=== PATIENT | male | born 1995 | race Caucasian/White ===

== ENCOUNTER 2019-10-12 00:20 | Emergency (ER) | payer BC ==
[2019-10-12 00:29] VITALS: BP 122/66; PULSE 66; RESP 18; TEMP 97.8
--- NOTE | 2019-10-12 01:10 | XR ---
EXAMINATION TYPE: XR hand complete LT DATE OF EXAM: 10/12/2019 COMPARISON: NONE HISTORY: Second metacarpal pain TECHNIQUE: 3 views FINDINGS: I see no fracture nor dislocation. Joint spaces are normal. Metacarpals appear intact. Ther e nor erosions. There is no subluxation. IMPRESSION: Normal left hand exam. No fracture.
--- NOTE | 2019-10-12 01:16 | ED ---
Upper Extremity HPI - General Chief Complaint: Extremity Injury, Upper Stated Complaint: L Hand Pain Time Seen by Provider: 10/12/19 00:34 Source: patient, RN notes reviewed, old records reviewed Mode of arrival: ambulatory Limitations: physical limitation - History of Present Illness Initial Comments: 24 male presents today for concern for L hand pain for weeks. Patient reports that he has alump over 2nd metacarpal and pain with range of motion. He works with is hands at a factory. Patient reports he is R handed. - Related Data Allergies Allergy/AdvReac Type Severity Reaction Status Date / Time No Known Allergies Allergy Verified 10/12/19 00:29 Review of Systems ROS Statement: Those systems with pertinent positive or pertinent negative responses have been documented in the HPI. ROS Other: All systems not noted in ROS Statement are negative. Past Medical History Past Medical History: No Reported History History of Any Multi-Drug Resistant Organisms: None Reported Past Surgical History: No Surgical Hx Reported Past Psychological History: ADD/ADHD Smoking Status: Never smoker Past Alcohol Use History: Occasional Past Drug Use History: None Reported General Exam - General Exam Comments Initial Comments: 24 year old male, no distress. Limitations: physical limitation General appearance: alert, in no apparent distress Head exam: Present: atraumatic, normocephalic, normal inspection Eye exam: Present: normal appearance, PERRL, EOMI. Absent: scleral icterus, conjunctival injection, periorbital swelling ENT exam: Present: normal exam, mucous membranes moist Neck exam: Present: normal inspection. Absent: tenderness, meningismus, lymphadenopathy Respiratory exam: Present: normal lung sounds bilaterally. Absent: respiratory distress, wheezes, rales, rhonchi, stridor Cardiovascular Exam: Present: regular rate, normal rhythm, normal heart sounds. Absent: systolic murmur, diastolic murmur, rubs, gallop, clicks GI/Abdominal exam: Present: soft, normal bowel sounds. Absent: distended, tenderness, guarding, rebound, rigid Extremities exam: Present: normal inspection, full ROM, normal capillary refill. Absent: tenderness, pedal edema, joint swelling, calf tenderness Right Upper Arm exam: Present: normal inspection, full ROM Elbow exam: Present: normal inspection, full ROM Forearm Wrist exam: Present: normal inspection, full ROM Hand Wrist exam: Present: full ROM, tenderness (over 2nd digit. ). Absent: normal inspection Vascular: Present: normal capillary refill Back exam: Present: normal inspection Neurological exam: Present: alert, oriented X3, CN II-XII intact Psychiatric exam: Present: normal affect, normal mood Skin exam: Present: warm, dry, intact, normal color. Absent: rash Course Vital Signs 10/12/19 00:24 Temperature 97.8 F Pulse Rate 66 Respiratory 18 Rate Blood Pressure 122/66 O2 Sat by Pulse 99 Oximetry Medical Decision Making - Medical Decision Making 24 year old male with CC of left hand pain for months. PAtient has full ROM, small cyst like lump on 2nd metacarpal. Patient hand xray is normal. Patient advised to follow up with ortho and PCP and take antiinflammatory medication. - Radiology Data Radiology results: report reviewed Normal hand xray, no fracture or dislocation. Disposition Clinical Impression: Sprain of left hand, Cyst in hand Disposition: HOME SELF-CARE Condition: Good Instructions (If sedation given, give patient instructions): Hand Sprain (ED) Additional Instructions: Take antiinflammatories medication and advised to follow up with orthopedics. Patient can use MAGNO wrap and ice the hand. Return to ED if any alarming signs or symptoms occur. Is patient prescribed a controlled substance at d/c from ED?: No Referrals: Luis Fernando Prabhakar MD [Primary Care Provider] - 1-2 days Rodrigo Sampson DO [Medical Doctor] - 1-2 days Time of Disposition: 01:13
== END 2019-10-12 01:39 | disposition home or self-care (01) ==
LOC: EC 00:20
DX: S63.92XA Sprain of unspecified part of left wrist and hand, initial encounter (principal); L72.9 Follicular cyst of the skin and subcutaneous tissue, unspecified; X58.XXXA Exposure to other specified factors, initial encounter
CPT/HCPCS: 99284

== ENCOUNTER 2019-10-25 19:52 | Emergency (ER) | payer BC ==
[2019-10-25] MEDS ORDERED: guaiFENesin-Coden 100-10MG/5ML 10 ML CUP PO STA (20:17)
[2019-10-25] MEDS ORDERED: KETOROLAC 30 MG/ML 1 ML VIAL IM STA (20:17)
[2019-10-25] MEDS ORDERED: DEXAMETHASONE SOD PHOSPHATE 10 MG/ML 1 ML VIAL IM STA (20:17)
[2019-10-25] MEDS ORDERED: ACETAMINOPHEN TAB 500 MG TAB PO STA (20:17)
--- NOTE | 2019-10-25 20:34 | XR ---
EXAMINATION TYPE: XR chest 2V DATE OF EXAM: 10/25/2019 COMPARISON: NONE HISTORY: Cough and congestion TECHNIQUE: FINDINGS: Heart and mediastinum are normal. Lungs are clear of infiltrate. There is no pleural effusi on. There are no hilar masses. Bony thorax is intact. IMPRESSION: No active cardiopulmonary disease. Normal heart.
--- NOTE | 2019-10-25 20:44 | ED ---
General Adult HPI - General Chief complaint: Fever Stated complaint: abd pain/fatigue Time Seen by Provider: 10/25/19 20:06 Source: patient Mode of arrival: ambulatory Limitations: no limitations - History of Present Illness Initial comments: 24-year-old male patient presents to the emergency department today for evaluation of cough, fever, and fatigue. Patient states he has been sick for the last 7-8 days with symptoms. He does report a frequent cough with no sputum production. States that his upper body hurts when he coughs. He denies any shortness of breath or wheezing. States he does not smoke cigarettes when he does occasionally weight. Patient is also reporting mild sore throat and nasal congestion. States he has been taking [id number] flu medicines which have not really help his symptoms. States today while at work he became chilled and started to have body aches and is just feeling worse so he wanted to get checked out. Denies any sick contacts. States he is otherwise healthy with no medical conditions. Does not take any medications. Patient denies any recent rash, chest pain, nausea, vomiting, diarrhea, constipation, back pain, numbness, tingling, dizziness, weakness, hematuria, dysuria, urinary urgency, urinary frequency, visual changes, or any other complaints. - Related Data Previous Rx's Medication Instructions Recorded guaiFENesin-Coden 100-10MG/5ML 10 ml PO Q6H PRN 3 Days #120 ml 10/25/19 [Robitussin AC] guaiFENesin-DM 600/30MG [Mucinex 2 each PO Q12HR PRN #20 tab.er.12h 10/25/19 Dm] Allergies Allergy/AdvReac Type Severity Reaction Status Date / Time No Known Allergies Allergy Verified 10/25/19 20:04 Review of Systems ROS Statement: Those systems with pertinent positive or pertinent negative responses have been documented in the HPI. ROS Other: All systems not noted in ROS Statement are negative. Past Medical History Past Medical History: No Reported History History of Any Multi-Drug Resistant Organisms: None Reported Past Surgical History: No Surgical Hx Reported Past Psychological History: ADD/ADHD Smoking Status: Never smoker Past Alcohol Use History: Occasional Past Drug Use History: None Reported General Exam Limitations: no limitations General appearance: alert, in no apparent distress, other (This is a well- developed, well-nourished adult male patient in no acute distress. Vital signs upon presentation are temperature 99.9F, pulse 99, respirations 20, blood pressure 121/75, pulse ox 97% on room air.) Eye exam: Present: normal appearance, PERRL, EOMI. Absent: scleral icterus, conjunctival injection, periorbital swelling ENT exam: Present: mucous membranes moist, TM's normal bilaterally. Absent: normal oropharynx (Pharyngeal erythema) Neck exam: Present: normal inspection. Absent: tenderness, meningismus, lymphadenopathy Respiratory exam: Present: normal lung sounds bilaterally. Absent: respiratory distress, wheezes, rales, rhonchi, stridor Cardiovascular Exam: Present: regular rate, normal rhythm, normal heart sounds. Absent: systolic murmur, diastolic murmur, rubs, gallop, clicks GI/Abdominal exam: Present: soft, normal bowel sounds. Absent: distended, tenderness, guarding, rebound, rigid Neurological exam: Present: alert, oriented X3, CN II-XII intact Psychiatric exam: Present: normal affect, normal mood Skin exam: Present: warm, dry, intact, normal color. Absent: rash Course Vital Signs 10/25/19 10/25/19 10/25/19 19:59 20:18 20:59 Temperature 99.9 F H 100.5 F H 99.2 F Pulse Rate 99 74 Respiratory 20 18 Rate Blood Pressure 121/75 110/64 O2 Sat by Pulse 97 96 Oximetry Medical Decision Making - Medical Decision Making 24-year-old male patient presented to the emergency department today for evaluation of upper respiratory symptoms, fever, and fatigue. Physical examination reveals clear equal lung sounds. Respirations are nonlabored. There was some pharyngeal erythema. No evidence for otitis media. Influenza test was positive. Chest x-ray was negative. Patient was given several medications here to improve symptoms. He will be discharged home with cough medication. He is instructed to increase fluids and to rest. We discussed fever management. Is instructed to follow-up the primary care physician for recheck in 1-2 days. Return parameters discussed in detail. He verbalizes understanding and agrees with this plan. - Lab Data Lab Results 10/25/19 Range/Units 20:00 Influenza Type A RNA Not Detected (Not Detectd) Influenza Type B (PCR) Detected H (Not Detectd) Disposition Clinical Impression: Influenza B Disposition: HOME SELF-CARE Condition: Good Instructions (If sedation given, give patient instructions): Fever in Adults (ED), Influenza (ED) Additional Instructions: Increase fluids. Take tylenol and motrin for pain and fever control. Use cough medication as directed. Follow up with the primary care physician for recheck in 1-2 days. Return to the emergency department for any new, worsening, or concerning symptoms. Prescriptions: guaiFENesin-DM 600/30MG [Mucinex Dm] 2 each PO Q12HR PRN #20 tab.er.12h PRN Reason: Cough guaiFENesin-Coden 100-10MG/5ML [Robitussin AC] 10 ml PO Q6H PRN 3 Days #120 ml PRN Reason: Cough Is patient prescribed a controlled substance at d/c from ED?: No Referrals: Luis Fernando Prabhakar MD [Primary Care Provider] - 1-2 days Time of Disposition: 20:56
[2019-10-25 21:07] VITALS: BP 110/64; PULSE 74; RESP 18; TEMP 99.2
== END 2019-10-25 21:07 | disposition home or self-care (01) ==
LOC: EC 19:52
DX: J10.1 Influenza due to other identified influenza virus with other respiratory manifestations (principal)
CPT/HCPCS: 87502; 71046; 96372 ×2; 99284; J1100; J1885

== ENCOUNTER 2020-10-02 08:18 | Emergency (ER) | payer BC, OTHER ==
[2020-10-02 08:29] VITALS: BP 117/68; PULSE 68; RESP 18; TEMP 97.9
--- NOTE | 2020-10-02 08:56 | ED ---
Upper Extremity HPI - General Chief Complaint: Extremity Injury, Upper Stated Complaint: IHS, wrist injury Time Seen by Provider: 10/02/20 08:31 Source: patient Mode of arrival: ambulatory Limitations: no limitations - History of Present Illness Initial Comments: Patient is a 25-year-old male presenting to the emergency Department with complaints of a injury to his left wrist. Patient states he was at work when his wrist got pushed back into a machine. He is able to move his wrist around but there is some pain at the medial aspect of the wrist. He denies any previous injuries of his wrist, no previous surgeries. He denies any other complaints at this time. - Related Data Previous Rx's Medication Instructions Recorded guaiFENesin-Coden 100-10MG/5ML 10 ml PO Q6H PRN 3 Days #120 ml 10/25/19 [Robitussin AC] guaiFENesin-DM 600/30MG [Mucinex 2 each PO Q12HR PRN #20 tab.er.12h 10/25/19 Dm] Allergies Allergy/AdvReac Type Severity Reaction Status Date / Time No Known Allergies Allergy Verified 10/02/20 08:29 Review of Systems ROS Statement: Those systems with pertinent positive or pertinent negative responses have been documented in the HPI. ROS Other: All systems not noted in ROS Statement are negative. Past Medical History Past Medical History: No Reported History History of Any Multi-Drug Resistant Organisms: None Reported Past Surgical History: No Surgical Hx Reported Past Psychological History: ADD/ADHD Smoking Status: Vaper Past Alcohol Use History: Occasional Past Drug Use History: None Reported General Exam - General Exam Comments Initial Comments: GENERAL: Patient is well-developed and well-nourished. Patient is nontoxic and in no acute distress. HEAD: Atraumatic, normocephalic. EYES: Pupils equal round and reactive to light, extraocular movements intact, sclera anicteric, conjunctiva are normal. Eyelids were unremarkable. ENT: TMs normal, nares patent, oropharynx clear without exudates. Moist mucous membranes. NECK: Normal range of motion, supple without lymphadenopathy or JVD. LUNGS: Unlabored respirations. Breath sounds clear to auscultation bilaterally and equ al. No wheezes rales or rhonchi. HEART: Regular rate and rhythm without murmurs, rubs or gallops. ABDOMEN: Soft, nontender, normoactive bowel sounds. No guarding, no rebound. No masses appreciated. : Deferred MUSCULOSKELETAL: Patient has some mild pain at the distal radius, no obvious deformity, no swelling. He does have full left wrist range of motion. No snuffbox tenderness. He is neurovascular intact. No clubbing or cyanosis. NEUROLOGICAL: Patient is alert and oriented x 3. Motor and sensory are also intact. Normal speech, normal gait. PSYCH: Normal mood, normal affect. SKIN: Warm, Dry, normal turgor, no rashes or lesions noted. Limitations: no limitations Course Vital Signs 10/02/20 08:23 Temperature 97.9 F Pulse Rate 68 Respiratory 18 Rate Blood Pressure 117/68 O2 Sat by Pulse 98 Oximetry Medical Decision Making - Medical Decision Making Patient is a 25-year-old male here for left wrist injury while at work today. He has pain at the distal end of the radius, no obvious deformity, no swelling, no snuffbox tenderness. X-rays revealed no acute fractures dislocations. Discussed these findings with the patient. He is stable for discharge. If symptoms persist, he can follow up with his regular doctor. He is stable for discharge. Case discussed Dr. Thao. Disposition Clinical Impression: Contusion of left wrist Disposition: HOME SELF-CARE Condition: Stable Instructions (If sedation given, give patient instructions): Wrist Injury (ED) Additional Instructions: Please return to the Emergency Department if symptoms worsen or any other concerns. If symptoms persist follow-up with your regular doctor. Is patient prescribed a controlled substance at d/c from ED?: No Referrals: Luis Fernando Prabhakar MD [Primary Care Provider] - 1-2 days
--- NOTE | 2020-10-02 09:26 | XR ---
EXAMINATION TYPE: XR wrist complete LT DATE OF EXAM: 10/02/2020 COMPARISON: NONE HISTORY: Pain TECHNIQUE: Four views submitted. FINDINGS: The osseous structures are intact. The joint spaces are preserved and there is no acute fracture or dislocation. IMPRESSION: 1. No definite acute fracture or dislocation if symptoms persist, follow-up study in 7 to 10 days wo uld be suggested
== END 2020-10-02 09:46 | disposition home or self-care (01) ==
LOC: EC 08:18
DX: S60.212A Contusion of left wrist, initial encounter (principal); F17.290 Nicotine dependence, other tobacco product, uncomplicated; W31.9XXA Contact with unspecified machinery, initial encounter; Y92.69 Other specified industrial and construction area as the place of occurrence of the external cause; Y99.0 Civilian activity done for income or pay
CPT/HCPCS: 99283

== ENCOUNTER → 2022-01-22 | Outpatient (CLI) | payer BC ==
--- NOTE | 2022-01-22 12:18 | CA ---
Exercise Stress Test Report Name: José Luis Iqbal Exam Date: 01/22/2022 11:08 Exam Location: [facility] Stress Ht (in): 72 Wt (lb): 227 BSA: 2.25 Ordering Phys: Luis Fernando Prabhakar MD Referring Phys: MANUEL,, Technologist: Arielle Lan RDCS Age: 26 Gender: M : 1995 Procedure CPT: Indications: R07.9 CHEST PAIN ICD-10 Codes: Patient History: Family HX Medications: N/A Meds past 24 hrs: Pretest Chest Pain: STRESS TEST Ga Protocol Exercise Duration (min:sec): 10:[address] Depressions (mm): Angina Score: Hernández Score: Resting HR (bpm): 74 Peak HR (bpm): 182 Resting BP (mmHg): 144 / 88 Peak BP (mmHg): 177 / 94 MPHR: 196 Target HR: 167 % MPHR: 93 METS: 10.9 Total Dose: Peak Dose: Atropine: Double Product: 18996 BP Response: Stress Termination: Stress Symptoms: Stress Summary: ECG ANALYSIS Resting ECG: Stress ECG: CONCLUSIONS Baseline heart rate 74 beats a minute, Baseline blood pressure 144/88 mmHg Baseline 12-lead EKG showed normal sinus rhythm normal cardiac intervals normal ST segments Patient exercised Ga protocol for 10 minutes 22 seconds achieving a peak heart rate of 179 beats a minute Normal blood pressure response He complained of chest pressure [address] segment abnormalities or any blood pressure changes or any arrhythmias Impression good exercise capacity Chest pressure during stress testing but without any arrhythmias, evidence for ischemia on ECG or any abnormal blood pressure response Dr. Yomi Corrla MD (Electronically Signed) Final Date: 22 Jan 2022 12:17
--- NOTE | 2022-01-22 12:20 | CA ---
Transthoracic Echo Report Name: José Luis Iqbal Age: 26 Gender: M : 1995 Exam Date: 01/22/2022 11:15 Exam Location: [place] Echo Ht (in): 72 Wt (lb): 227 Ordering Physician: Luis Fernando Prabhakar MD Attending/Referring Phys: [id number], Aki Prover Ilene Holly, [facility] Procedure CPT: Indications: R07.9 CHEST PAIN Cardiac Hx: Family Hx of CAD Technical Quality: Good Contrast 1: Total Dose (mL): Contrast 2: Total Dose (mL): MEASUREMENTS (Male / Female) Normal Values 2D ECHO LV Diastolic Diameter PLAX 4.8 cm 4.2 - 5.9 / 3.9 - 5.3 cm LV Systolic Diameter PLAX 3.1 cm IVS Diastolic Thickness 1.0 cm 0.6 - 1.0 / 0.6 - 0.9 cm LVPW Diastolic Thickness 1.0 cm 0.6 - 1.0 / 0.6 - 0.9 cm LV Relative Wall Thickness 0.4 RV Internal Dim ED PLAX 3.4 cm LA Systolic Diameter LX 3.6 cm 3.0 - 4.0 / 2.7 - 3.8 cm LA Volume 47.5 cm??? 18 - 58 / 22 - 52 cm??? M-MODE Aortic Root Diameter MM 3.2 cm MV E Point Septal Separation 0.6 cm AV Cusp Separation MM 2.5 cm DOPPLER AV Peak Velocity 131.0 cm/s AV Peak Gradient 6.9 mmHg MV Area PHT 4.9 cm??? Mitral E Point Velocity 81.5 cm/s Mitral A Point Velocity 61.5 cm/s Mitral E to A Ratio 1.3 MV Deceleration Time 155.0 ms MV E' Velocity 9.4 cm/s Mitral E to MV E' Ratio 8.7 TR Peak Velocity 205.2 cm/s TR Peak Gradient 16.8 mmHg Right Ventricular Systolic Press 21.8 mmHg FINDINGS Left Ventricle Left ventricular ejection fraction is estimated at 60-65 %. Normal Left ventricular size, wall thickness, systolic function with no obvious regional wall motion abnormalities. Normal Left ventricular diastolic filling pattern. Right Ventricle Mild right ventricular dilatation. Right ventricular systolic pressure within normal limits. Right Atrium Normal right atrial size. Left Atrium Normal left atrial size. No evidence for an atrial septal defect. Mitral Valve Structurally normal mitral valve. Aortic Valve Trileaflet aortic valve. No aortic valve stenosis or regurgitation. Tricuspid Valve Trace to mild tricuspid regurgitation. Pulmonic Valve Structurally normal pulmonic valve. Pericardium Normal pericardium. Aorta Normal size aortic root and proximal ascending aorta. CONCLUSIONS Normal LV systolic function Previewed by: Dr. Yomi Corral MD (Electronically Signed) Final Date: 22 Jan 2022 12:19
== END | disposition home or self-care (01) ==
LOC: RADNMMAIN 10:54
PROVIDERS: ATTEND Family Medicine
DX: R07.9 Chest pain, unspecified (principal)
CPT/HCPCS: 93017; 93306

== ENCOUNTER → 2022-04-01 | Outpatient (CLI) | payer BC | LOC: CPPFTMAIN 08:20 | PROVIDERS: ATTEND Family Medicine | DX: R06.09 Other forms of dyspnea (principal); R07.9 Chest pain, unspecified | CPT/HCPCS: 94060; 94726; 94729 ==